=== PATIENT | male | born 1960 | race Caucasian/White ===

== ENCOUNTER 2018-05-02 14:34 | Emergency (ER) | payer OTHER ==
[2018-05-02] MEDS ORDERED: SODIUM CHLORIDE 0.9% 1,000 ML IV STA ×2 (15:01)
--- NOTE | 2018-05-02 15:06 | ED ---
Chest Pain HPI - General Chief Complaint: Chest Pain Stated Complaint: Chest pain Time Seen by Provider: 05/02/18 14:52 Source: patient, RN notes reviewed, old records reviewed Mode of arrival: ambulatory Limitations: no limitations - History of Present Illness Initial Comments: Patient is a 58-year-old male presents emergency room in today with an onset of dull chest pain starting at 3 AM today. Patient reports that he'll have occasional sharp stabbing pains and later creating a dull ache. He reports pain is not worse with taking a deep breath. He denies any dyspnea. Patient states that he has had no cough fevers chills nausea or vomiting. Patient states that he has a positive family history of heart disease. Multiple minutes family decided in the early 50s due to heart attacks. He is a smoker and smokes approximately pack a day. Patient has had no back pain, abdominal pain changes in urination or bowel habits. - Related Data Home Medications Medication Instructions Recorded Confirmed Aspirin EC [Ecotrin Low Dose] 81 mg PO ONCE 05/02/18 05/02/18 Allergies Allergy/AdvReac Type Severity Reaction Status Date / Time No Known Allergies Allergy Verified 05/02/18 15:17 Review of Systems ROS Statement: Those systems with pertinent positive or pertinent negative responses have been documented in the HPI. ROS Other: All systems not noted in ROS Statement are negative. EKG Findings - EKG Comments: EKG Findings:: EKG shows R sinus rhythm normal ECG. Ventricular rate 63 bpm. Was on 40 ms. QRS duration 106 most seconds. QT QTc is 418/427 ms. Past Medical History Past Medical History: No Reported History History of Any Multi-Drug Resistant Organisms: None Reported Additional Past Surgical History / Comment(s): BROKEN JAW Past Psychological History: No Psychological Hx Reported Smoking Status: Current every day smoker Past Alcohol Use History: Occasional Past Drug Use History: None Reported General Exam - General Exam Comments Initial Comments: Gen. alert and oriented 58-year-old male. No significant distress. Limitations: no limitations General appearance: alert, in no apparent distress Head exam: Present: atraumatic, normocephalic, normal inspection Eye exam: Present: normal appearance, PERRL, EOMI. Absent: scleral icterus, conjunctival injection, periorbital swelling ENT exam: Present: normal exam, mucous membranes moist Neck exam: Present: normal inspection. Absent: tenderness, meningismus, lymphadenopathy Respiratory exam: Present: normal lung sounds bilaterally. Absent: respiratory distress, wheezes, rales, rhonchi, stridor Cardiovascular Exam: Present: regular rate, normal rhythm, normal heart sounds. Absent: systolic murmur, diastolic murmur, rubs, gallop, clicks GI/Abdominal exam: Present: soft, normal bowel sounds. Absent: distended, tenderness, guarding, rebound, rigid Extremities exam: Present: normal inspection, full ROM, normal capillary refill. Absent: tenderness, pedal edema, joint swelling, calf tenderness Back exam: Present: normal inspection Neurological exam: Present: alert, oriented X3, CN II-XII intact Psychiatric exam: Present: normal affect, normal mood Skin exam: Present: warm, dry, intact, normal color. Absent: rash Course Vital Signs 05/02/18 05/02/18 05/02/18 14:48 16:18 18:06 Temperature 98.1 F 97.9 F Pulse Rate 67 57 L 67 Respiratory 16 18 18 Rate Blood Pressure 128/67 126/88 136/92 O2 Sat by Pulse 97 97 97 Oximetry Chest Pain MDM - MDM Patient is a 58-year-old male with history of smoking positive family history of heart disease presents prescription with dull aching chest pain starting 3 AM. Patient's EKG at [facility] was normal. EKG here shows no acute changes. He is given IV fluids and lab work was obtained. Troponin is negative. I discussed the patient's risk factors including a family history of smoking as well as patient's description of dull chest pain I would like to admit the Patient. Patient states he refuses to one has to go to work tomorrow. He will be signing out AGAINST MEDICAL ADVICE. I discussed with the Patient that if he is having any further symptoms that he would need to return. Patient has been advised to follow up with cardiology PCP. Strict return parameters were discussed. Disposition Clinical Impression: Chest pain Disposition: Left Against Medical Advice Condition: Good Instructions (If sedation given, give patient instructions): Chest Pain (ED) Additional Instructions: Follow-up with your primary care physician. Return to emergency department if any alarming signs or symptoms occur. Return to the emergency department if there is any further chest pain shortness breath or other concerning signs or symptoms. Is patient prescribed a controlled substance at d/c from ED?: No Referrals: Bobo Enriquez MD [Primary Care Provider] - 1-2 days Time of Disposition: 17:45
[2018-05-02 15:41] LABS: Basophils # (A) 0.1 k/uL (0-0.2); Basophils % (A) 1 %; Eosinophils # (A) 0.3 k/uL (0-0.7); Eosinophils % (A) 5 %; HCT 43.1 % (39.0-53.0); HGB 14.4 gm/dL (13.0-17.5); Lymphocytes # (A) 2.5 k/uL (1.0-4.8); Lymphocytes % (A) 43 %; MCH 30.7 pg (25.0-35.0); MCHC 33.5 g/dL (31.0-37.0); MCV 91.6 fL (80.0-100.0); Mean Platelet Volume 6.6; Monocytes # (A) 0.4 k/uL (0-1.0); Monocytes % (A) 7 %; Neutrophils # (A) 2.3 k/uL (1.3-7.7); Neutrophils % (A) 40 %; Platelet Count 223 k/uL (150-450); RDW 12.9 % (11.5-15.5); WBC 5.8 k/uL (3.8-10.6)
[2018-05-02 15:49] LABS: INR 0.9 (<1.2); Partial Thromboplastin Time 24.9 sec (22.0-30.0); Prothrombin Time 9.7 sec (9.0-12.0)
[2018-05-02 15:56] LABS: ALT 41 U/L (21-72); AST 29 U/L (17-59); Alkaline Phosphatase 55 U/L (38-126); Anion Gap 6 mmol/L; Blood Urea Nitrogen 19 mg/dL (9-20); Calcium 9.2 mg/dL (8.4-10.2); Carbon Dioxide 26 mmol/L (22-30); Chloride 106 mmol/L (98-107); Glucose 108 mg/dL (74-99); Potassium 4.1 mmol/L (3.5-5.1); Sodium 138 mmol/L (137-145); Total Bilirubin 0.6 mg/dL (0.2-1.3); Total Protein 6.8 g/dL (6.3-8.2)
[2018-05-02 16:19] VITALS: RESP 18
--- NOTE | 2018-05-02 16:20 | XR ---
EXAMINATION TYPE: XR chest 2V DATE OF EXAM: 05/02/2018 COMPARISON: NONE HISTORY: Chest pain TECHNIQUE: Frontal and lateral views of the chest are obtained. FINDINGS: There is no focal air space opacity, pleural effusion, or pneumothorax seen. Prominent nupur g volumes may be indicative of underlying COPD. The cardiac silhouette size is within normal limits. The osseous structures are intact. IMPRESSION: No acute cardiopulmonary process.
[2018-05-02 18:07] VITALS: BP 136/92; PULSE 67; TEMP 97.9
== END 2018-05-02 18:07 | disposition left against medical advice (07) ==
LOC: EC 14:34
DX: R07.9 Chest pain, unspecified (principal); F17.200 Nicotine dependence, unspecified, uncomplicated; Z53.29 Procedure and treatment not carried out because of patient's decision for other reasons; Z79.82 Long term (current) use of aspirin
CPT/HCPCS: 36415; 71046; 80053; 83735; 83880; 84484; 85025; 85610; 85730; 93005; 96360; 96361; 99285

== ENCOUNTER 2018-09-27 10:55 | Emergency (ER) | payer OTHER ==
[2018-09-27 11:00] VITALS: RESP 18; TEMP 97.8
--- NOTE | 2018-09-27 13:07 | XR ---
EXAMINATION TYPE: XR finger RT DATE OF EXAM: 09/27/2018 CLINICAL HISTORY: pain Right fourth digit. TECHNIQUE: 3 views of the right fourth digit are submitted. COMPARISON: None FINDINGS: No displaced fracture is seen with certainty. Joint spaces are well-preserved. Correlate for soft tissue injury. No radiopaque foreign body identified with certainty. IMPRESSION: No acute displaced fracture or dislocation.
[2018-09-27 13:44] VITALS: BP 125/88; PULSE 66
--- NOTE | 2018-09-27 14:12 | ED ---
General Adult HPI - General Chief complaint: Extremity Injury, Upper Stated complaint: Poss FB in finger Time Seen by Provider: 09/27/18 12:17 Source: patient, RN notes reviewed Mode of arrival: ambulatory Limitations: no limitations - History of Present Illness Initial comments: 58-year-old male presents to the emergency department for a chief complaint of possible foreign body in the right fourth digit. Patient states that approximately 10 days ago. Several wall fell against his hand smashed it against another wall. States that he feels there is a foreign body and it. States that he is keep squeezing out clear fluid from the right fourth digit. Denies pain with flexion or extension of the right fourth digit. Denies fevers or chills. Denies any redness. States tetanus is up-to-date. Patient has no other complaints at this time including shortness of breath, chest pain, abdominal pain, nausea or vomiting, headache, or visual changes. - Related Data Home Medications Medication Instructions Recorded Confirmed Aspirin EC [Ecotrin Low Dose] 81 mg PO ONCE 05/02/18 05/02/18 Previous Rx's Medication Instructions Recorded Cephalexin [Keflex] 500 mg PO Q6HR 7 Days cap 09/27/18 Allergies Allergy/AdvReac Type Severity Reaction Status Date / Time No Known Allergies Allergy Verified 09/27/18 10:56 Review of Systems ROS Statement: Those systems with pertinent positive or pertinent negative responses have been documented in the HPI. ROS Other: All systems not noted in ROS Statement are negative. Past Medical History Past Medical History: No Reported History History of Any Multi-Drug Resistant Organisms: None Reported Additional Past Surgical History / Comment(s): BROKEN JAW Past Psychological History: No Psychological Hx Reported Smoking Status: Current every day smoker Past Alcohol Use History: Occasional Past Drug Use History: None Reported General Exam Limitations: no limitations General appearance: alert, in no apparent distress Head exam: Present: atraumatic, normocephalic, normal inspection Eye exam: Present: normal appearance, PERRL, EOMI. Absent: scleral icterus, conjunctival injection, periorbital swelling ENT exam: Present: normal exam, mucous membranes moist Neck exam: Present: normal inspection, full ROM. Absent: tenderness, meningismus Respiratory exam: Present: normal lung sounds bilaterally. Absent: respiratory distress, wheezes, rales, rhonchi, stridor Cardiovascular Exam: Present: regular rate, normal rhythm, normal heart sounds. Absent: systolic murmur, diastolic murmur, rubs, gallop, clicks Extremities exam: Present: full ROM (She has full range motion of the right fourth digit without significant pain. Full extension without pain. No pain with passive extension.), tenderness (Minimal tenderness noted to the middle phalanx of the right fourth digit), normal capillary refill (Refill less than 2 seconds, radial pulse 2+.), other (Small healing laceration 0.5 cm in the palmar aspect of the right fourth digit middle phalanx. No drainage noted. No straining erythema.) Course Vital Signs 09/27/18 09/27/18 10:56 13:43 Temperature 97.8 F Pulse Rate 78 66 Respiratory 18 18 Rate Blood Pressure 141/90 125/88 O2 Sat by Pulse 97 97 Oximetry Medical Decision Making - Medical Decision Making 58-year-old male presents for possible foreign body in the right fourth finger. Patient had his hand smashed against a wall 2 weeks ago. He states he keep squeezing fluid out of it but denies any fevers or chills. No redness. Patient has full range motion of the right fourth digit. No tenderness noted besides a small laceration site. Laceration is healing. No evidence for flexor tenosynovitis. X-ray negative for fracture or foreign body. At this time patient will be fine antibiotics. He will follow up with orthopedics. He will return here if he has any worsening symptoms. Disposition Clinical Impression: Finger pain, right Disposition: HOME SELF-CARE Condition: Good Instructions (If sedation given, give patient instructions): Finger Sprain (ED) Additional Instructions: Please follow up with primary care in 1-2 days for wound recheck. Follow-up with orthopedics as well. Take antibiotics as directed. Return if you have any worsening symptoms. Prescriptions: Cephalexin [Keflex] 500 mg PO Q6HR 7 Days cap Is patient prescribed a controlled substance at d/c from ED?: No Referrals: Bobo Enriquez MD [Primary Care Provider] - 1-2 days Vikas Bautista DO [Doctor of Osteopathic Medicine] - 1-2 days Time of Disposition: 14:10
== END 2018-09-27 14:18 | disposition home or self-care (01) ==
LOC: EC 10:55
DX: S61.214A Laceration without foreign body of right ring finger without damage to nail, initial encounter (principal); F17.200 Nicotine dependence, unspecified, uncomplicated; Z79.82 Long term (current) use of aspirin; W22.01XA Walked into wall, initial encounter; Y92.89 Other specified places as the place of occurrence of the external cause
CPT/HCPCS: 99283

== ENCOUNTER 2020-05-02 15:56 | Emergency (ER) | payer OTHER ==
[2020-05-02 16:05] VITALS: BP 102/50; PULSE 75; RESP 18; TEMP 97.9
--- NOTE | 2020-05-02 17:13 | CT ---
EXAMINATION TYPE: CT thor lumbar spine wo con DATE OF EXAM: 05/02/2020 COMPARISON: None HISTORY: back pain following fall CT DLP: 914.1 mGycm Automated exposure control for dose reduction was used. Images were obtained from the level of T1-S1 vertebra without contrast. Vertebra have normal alignment. Disc spaces are fairly normal for age. There is minor spurring anteri jesus in the mid lumbar spine. The posterior elements are intact. There is no thoracic or lumbar sudhakar pinky mass. I see no focal bone destruction. Sacroiliac joints are intact. There is T12 anterior wedging with 25% loss of height. Fracture appears acute. IMPRESSION: Acute T12 compression fracture. Minor degenerative spur formation. No lumbar or thoracic spinal steno sis.
--- NOTE | 2020-05-02 17:45 | ED ---
Fall HPI - General Chief Complaint: Fall Stated Complaint: [facility] 9 ft fall 2 days ago/back pain/nausea/arm pain Time Seen by Provider: 05/02/20 16:00 Source: patient Mode of arrival: ambulatory - History of Present Illness Initial Comments: Patient is a 60-year-old male with no reported past medical history of present to emergency department after he sustained a fall on Sunday. 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 States that he was on a roof when a truss gave out and he fell to the ground. Reports that he fell from a height of 9 feet and landed flat on his back. Patient is having mid back pain. Unsure if he hit his head. Denies any heel pain. Patient was able to get up and ambulate. Has not taken any medications for his pain. Presented today due to continued pain. He denies any neck pain. Does admit to some numbness in his upper extremities. No upper extremity weakness or pain. Denies any chest pain or shortness of breath. No abdominal pain. Has not had a bowel movement since the incident. States that he does feel urinary frequency however when he goes to the bathroom to void he does not pass much urine. Denies numbness or tingling in his groin. Has been ab le to ambulate on his 2 feet. Denies any lower extremity weakness, numbness or tingling. No other alleviating, precipitating or modifying factors - Related Data Home Medications Medication Instructions Recorded Confirmed No Known Home Medications 05/02/20 05/02/20 Allergies Allergy/AdvReac Type Severity Reaction Status Date / Time No Known Allergies Allergy Verified 05/02/20 17:09 Review of Systems ROS Statement: Those systems with pertinent positive or pertinent negative responses have been documented in the HPI. ROS Other: All systems not noted in ROS Statement are negative. Past Medical History Past Medical History: No Reported History History of Any Multi-Drug Resistant Organisms: None Reported Additional Past Surgical History / Comment(s): BROKEN JAW Past Psychological History: No Psychological Hx Reported Smoking Status: Current every day smoker Past Alcohol Use History: Occasional Past Drug Use History: None Reported General Exam Limitations: no limitations General appearance: alert, in no apparent distress Head exam: Present: atraumatic, normocephalic, normal inspection Eye exam: Present: normal appearance, PERRL, EOMI. Absent: scleral icterus, conjunctival injection, periorbital swelling ENT exam: Present: normal exam, mucous membranes moist Neck exam: Present: normal inspection. Absent: tenderness, meningismus, lymphadenopathy Respiratory exam: Present: normal lung sounds bilaterally. Absent: respiratory distress, wheezes, rales, rhonchi, stridor Cardiovascular Exam: Present: regular rate, normal rhythm, normal heart sounds. Absent: systolic murmur, diastolic murmur, rubs, gallop, clicks GI/Abdominal exam: Present: soft, normal bowel sounds. Absent: distended, tenderness, guarding, rebound, rigid Rectal exam: Present: normal rectal tone Extremities exam: Present: normal inspection, full ROM, normal capillary refill, other (5/5 muscle strength b/l le. Intact sensation over the medial, lateral and dorsal b/l le. ). Absent: tenderness, pedal edema, joint swelling, calf tenderness Back exam: Present: vertebral tenderness (T10-L2) Neurological exam: Present: alert, oriented X3, CN II-XII intact Psychiatric exam: Present: normal affect, normal mood Skin exam: Present: warm, dry, intact, normal color. Absent: rash Course Vital Signs 05/02/20 05/02/20 05/02/20 16:02 17:05 17:57 Temperature 97.9 F 97.9 F Pulse Rate 75 75 Respiratory 18 18 18 Rate Blood Pressure 102/50 102/50 O2 Sat by Pulse 99 99 Oximetry Medical Decision Making - Medical Decision Making Upon arrival the patient is placed into room 24. A thorough history and physical exam is performed. Patient is able to ambulate on his own. No weakness in his lower extremities. No saddle anesthesia. Rectal tone intact. Bladder scan is performed which demonstrates that the patient has approximately 75-100 mL of urine in his bladder. Patient is sent over for a CT of his thoracic and lumbar spine which demonstrates acute T12 compression fracture with mild degenerative spur formation. Discuss results with the patient. I did recommend laboratory studies and a CT of his abdomen and pelvis to evaluate kidney anatomy. Patient refused stating that he wanted to come back tomorrow for further workup. I did call and speak with Dr. Roy who did recommend admission for orthopedic spine evaluation, fitting for TLSO brace, MRI. I spoke with the patient informing him that the orthopedic doctor and I both recommend hospitalization. Patient refused any further evaluation at this time. He is awake, alert and capable of making his own decisions. He is informed of the risks of leaving at this time to include permanent disability and even . Informed him that spinal cord injury is a huge concern for which the patient understood. She will be discharged AGAINST MEDICAL ADVICE knowing these risks. Reports that he would like to return to the emergency department tomorrow. Strongly suggested that he return tomorrow or follow-up with his primary care doctor for further evaluation. Patient was discharged AGAINST MEDICAL ADVICE Disposition Clinical Impression: Fall, Back pain, T12 compression fracture Disposition: Left Against Medical Advice Condition: Serious Is patient prescribed a controlled substance at d/c from ED?: No Referrals: Bobo Enriquez MD [Primary Care Provider] - 1-2 days Time of Disposition: 17:45
== END 2020-05-02 17:57 | disposition left against medical advice (07) ==
LOC: EC 15:56
DX: S22.9XXA Fracture of bony thorax, part unspecified, initial encounter for closed fracture (principal); F17.200 Nicotine dependence, unspecified, uncomplicated; W17.89XA Other fall from one level to another, initial encounter
CPT/HCPCS: 72128; 72131; 99284

== ENCOUNTER 2020-05-04 14:43 | Emergency (ER) | payer OTHER ==
[2020-05-04 14:51] VITALS: RESP 20; TEMP 98.5
--- NOTE | 2020-05-04 15:12 | ED ---
General Adult HPI - General Chief complaint: Back Pain/Injury Stated complaint: [facility] Fall, Revisit Time Seen by Provider: 05/04/20 14:59 Source: patient, old records reviewed Mode of arrival: ambulatory Limitations: no limitations - History of Present Illness Initial comments: 60-year-old male presents to the emergency room for a chief complaint of fall. Patient states that 5 days ago he fell off of a truss about 9 feet off the ground onto his back. He does not think he had his head. Patient states that he came to the ER 3 days ago and was told he had broken one of his vertebrae. On review of the CT he has a 25% compression fracture of T12. Patient states that since that time he has had mid back pain as well as a frequent sensation of feeling as though he needs to urinate. He states he is able to urinate. Patient denies any weakness or loss of sensation of the legs. Denies any difficulty ambulating. Patient denies loss of bowel control. had a normal bowel movement yesterday. Patient was told he should be admitted at that time however left AGAINST MEDICAL ADVICE to "take care of some things at home." Patient denies any worsening symptoms since that time but states they have been persistent.Patient has no other complaints at this time including shortness of breath, chest pain, abdominal pain, nausea or vomiting, headache, or visual changes. - Related Data Home Medications Medication Instructions Recorded Confirmed No Known Home Medications 05/02/20 05/02/20 Allergies Allergy/AdvReac Type Severity Reaction Status Date / Time No Known Allergies Allergy Verified 05/04/20 14:51 Review of Systems ROS Statement: Those systems with pertinent positive or pertinent negative responses have been documented in the HPI. ROS Other: All systems not noted in ROS Statement are negative. Past Medical History Past Medical History: No Reported History History of Any Multi-Drug Resistant Organisms: None Reported Additional Past Surgical History / Comment(s): BROKEN JAW Past Psychological History: No Psychological Hx Reported Smoking Status: Current every day smoker Past Alcohol Use History: Occasional Past Drug Use History: None Reported General Exam Limitations: no limitations General appearance: alert, in no apparent distress Head exam: Present: atraumatic, normocephalic, normal inspection Eye exam: Present: normal appearance, PERRL, EOMI. Absent: scleral icterus, conjunctival injection, periorbital swelling ENT exam: Present: normal exam, mucous membranes moist Neck exam: Present: normal inspection, full ROM. Absent: tenderness, meningismus, lymphadenopathy Respiratory exam: Present: normal lung sounds bilaterally. Absent: respiratory distress, wheezes, rales, rhonchi, stridor Cardiovascular Exam: Present: regular rate, normal rhythm, normal heart sounds. Absent: systolic murmur, diastolic murmur, rubs, gallop, clicks GI/Abdominal exam: Present: soft, normal bowel sounds. Absent: distended, tenderness, guarding, rebound, rigid Rectal exam: Present: normal inspection, normal rectal tone Extremities exam: Present: normal inspection, normal capillary refill (Capillary refill less than 2 seconds in bilateral lower extremities, DP pulse 2+.), other (Strength 5 out of 5. Sensation intact in bilateral lower extremities) Back exam: Present: vertebral tenderness (Tenderness around the lower thoracic spine, no lumbar spine tenderness. No cervical spine tenderness). Absent: CVA tenderness (R), CVA tenderness (L), other (No contusions) Neurological exam: Present: alert Course Vital Signs 05/04/20 14:46 Temperature 98.5 F Pulse Rate 75 Respiratory 20 Rate Blood Pressure 158/100 O2 Sat by Pulse 97 Oximetry Medical Decision Making - Medical Decision Making CT from 05/02/2020 was reviewed that showed T12 anterior wedging with 25% loss of height Today patient has neurovascular status intact. Ambulatory without difficulty. has a normal rectal tone. 17 mL post void residual. Patient able to urinate in the ER. As previous ER physician consulted with Dr vázquez who felt patient needed to be admitted before he left AMA [facility] I was able to speak to Dr. Juan who did agree that patient needed an MRI but did not feel patient needed to be admitted. He states that he needs the MRI before he will see him and he will not see him first to order it. Unable to obtain an emergent MRI. At this point, case was discussed with Dr. Barrientos as well who recommended following [employer] [employer] [facility]. I did discuss this case with HEENA Ramírez for advanced [facility]. States that Dr. Escalante will see him on an outpatient basis. I will write patient a TLSO brace. He will return for any worsening symptoms. Disposition Clinical Impression: T12 compression fracture, Back pain, Fall Disposition: HOME SELF-CARE Condition: Good Instructions (If sedation given, give patient instructions): Back Pain (ED) Additional Instructions: Please call orthopedics either this evening or tomorrow morning for earliest appointment. It would be best if they will see this week which they do believe they can do. Please take Motrin and Tylenol 3 for pain. Please wear brace. If you have any worsening symptoms such as worsening back pain, weakness of the legs, inability to urinate, or lose bowel control return to the emergency room. Is patient prescribed a controlled substance at d/c from ED?: No Referrals: Bobo Enriquez MD [Primary Care Provider] - 1-2 days Mukund Escalante DO [Doctor of Osteopathic Medicine] - 1-2 days Time of Disposition: 16:22
[2020-05-04] MEDS ORDERED: ACET/COD 300 MG/30 MG STARTER PACK 6 TAB BTL PO STA (16:21)
[2020-05-04] MEDS ORDERED: ONDANSETRON ODT 4 MG TAB PO STA (16:55)
[2020-05-04 17:04] VITALS: BP 166/90; PULSE 80
== END 2020-05-04 17:15 | disposition home or self-care (01) ==
LOC: EC 14:43
DX: S22.088A Other fracture of T11-T12 vertebra, initial encounter for closed fracture (principal); F17.200 Nicotine dependence, unspecified, uncomplicated; W17.89XA Other fall from one level to another, initial encounter
CPT/HCPCS: 99284